=== PATIENT | male | born 1955 | race Caucasian/White ===

== ENCOUNTER 2024-06-25 01:18 | Day surgery (SDC) | payer MEDICARE, SELFPAY ==
[2024-06-05 14:01] VITALS: BMI 25.0
[2024-06-25 10:21] VITALS: BP 132/73; PULSE 82; RESP 20; TEMP 36.2; O2SAT 97
[2024-06-25] MEDS: LACTATED RINGERS 1,000 ML 150 ML IV CONT (10:29)
--- NOTE | 2024-06-25 10:33 | WPDANESEPPF ---
Anes - Initial Pre Proc Eval Procedure: Operation Date: 06/25/24 11:30 Proposed Procedures p Colonoscopy - Santos Kelly MD Date/Time: 06/25/24 10:33 Surgeon: Santos Kelly MD Pre Op Diagnosis: other fecal abnormalities Patient Data Age: 68 Gender: M Height: 1.85 m Weight: 90.3 kg Last Vital Signs Temp 97.2 F L 06/25/24 10:21 Pulse 82 06/25/24 10:21 Resp 20 06/25/24 10:21 BP 132/73 06/25/24 10:21 Pulse Ox 97 06/25/24 10:21 O2 Del Method Room Air 06/25/24 10:21 Allergies Allergy/AdvReac Type Severity Reaction Status Date / Time azithromycin Allergy Unknown Hives Verified 06/25/24 10:19 Sulfa (Sulfonamide Allergy Hives Verified 06/25/24 10:19 Antibiotics) Home Medications Medication Instructions Recorded Confirmed Type multivitamin 1 tablet PO DAILY 11/21/21 06/05/24 History niacin 500 mg capsule,extended 500 mg PO QHS 11/21/21 06/05/24 History release fluorometholone 0.25 % eye 1 drp EACH EYE Q6H 02/26/23 06/05/24 History drops,suspension (FML Forte) gemfibrozil 600 mg tablet 600 mg PO BID #180 tabs 09/10/23 06/05/24 Rx terazosin 10 mg capsule 10 mg PO DAILY #90 caps 01/15/24 06/05/24 Rx indapamide 2.5 mg tablet 2.5 mg PO DAILY #90 tabs 04/03/24 06/05/24 Rx Patient hx anesthesia problems: none Family hx anesthesia problems: none Results Review: All pre-operative results and documents have been reviewed as part of the pre-operative evaluation. [facility] Past Medical History Medical History Bilateral open angle glaucoma Hypertension Hypertriglyceridemia Surgical History Surgical History History of cataract surgery bilateral Family History Family History Father Acute myocardial infarction Heart disease Hypertension Social History Social History (Updated 03/04/24 @ 09:52 by Yana Byrne CMA) Smoking status: Never smoker Second hand tobacco smoke exposure: No Alcohol intake: current Drinks per week: 1 Alcohol use details: BEER Substance use: never Substance use type: does not use Do You Feel Safe in your Home?: Yes Lack of Transportation: No Lack of Food: Never True Current Housing: I Have Housing Concerned About Future Housing: No Difficulty Paying Gas/Electric Bills: No Difficulty Paying for Meds: No Currently Unemployed: No Education: Bachelor's Degree Difficulty w/ Childcare or Family Care: No Living arrangements: with family Occupation/Education: retired Gender identity (if verbalized by the patient): Male Sexual Orientation (if Verbalized by the Patient): Straight or Heterosexual Spiritual care concerns: No Agree to blood products: Yes Anes - Eval Final PreProcedure Day of Procedure 06/25/24 10:33 Patient weight: normal Heart: regular rate and rhythm Lungs: clear to auscultation Airway: Mallampati scale class II Neurological: alert and oriented Last oral intake: >/= 8 hours ASA classification: III Emergent: no Anesthetic plan: proceed Anesthesia type and monitoring: general GIVS and standard monitoring Results Review: All pre-operative results and documents have been reviewed as part of the pre-operative evaluation. Informed Consent: The patient's anesthetic plan and its attendant risks and benefits were discussed with the patient/family/POA. Questions were solicited and answers provided to the satisfaction of the patient/family/POA.
--- NOTE | 2024-06-25 11:07 | PM.HPGS ---
History of Present Illness History of Present Illness Consent: Risks, benefits, and alternatives have been discussed and questions answered. Patient agrees to proceed with procedure. Chief complaint: other fecal abnormalities Narrative: Otilio Martinez is a 68 year old male here for colonoscopy because occult blood in stool, last colonoscopy 10 years ago Review of Systems Review of Systems: All systems reviewed & are unremarkable except as noted in HPI and below PMFSH Past Medical History Medical History (Updated 06/25/24 @ 11:09 by Santos Kelly MD) Bilateral open angle glaucoma Hypertension Hypertriglyceridemia Occult blood in stools Surgical History Surgical History History of cataract surgery bilateral Family History Family History Father Acute myocardial infarction Heart disease Hypertension Social History Social History (Updated 03/04/24 @ 09:52 by Yana Byrne [facility]) Smoking status: Never smoker Second hand tobacco smoke exposure: No Alcohol intake: current Drinks per week: 1 Alcohol use details: BEER Substance use: never Substance use type: does not use Do You Feel Safe in your Home?: Yes Lack of Transportation: No Lack of Food: Never True Current Housing: I Have Housing Concerned About Future Housing: No Difficulty Paying Gas/Electric Bills: No Difficulty Paying for Meds: No Currently Unemployed: No Education: Bachelor's Degree Difficulty w/ Childcare or Family Care: No Living arrangements: with family Occupation/Education: retired Gender identity (if verbalized by the patient): Male Sexual Orientation (if Verbalized by the Patient): Straight or Heterosexual Spiritual care concerns: No Agree to blood products: Yes Meds Home Medications and Allergies Home Medications Medication Instructions Recorded Confirmed Type multivitamin 1 tablet PO DAILY 11/21/21 06/05/24 History niacin 500 mg capsule,extended 500 mg PO QHS 11/21/21 06/05/24 History release fluorometholone 0.25 % eye 1 drp EACH EYE Q6H 02/26/23 06/05/24 History drops,suspension (FML Forte) gemfibrozil 600 mg tablet 600 mg PO BID #180 tabs 09/10/23 06/05/24 Rx terazosin 10 mg capsule 10 mg PO DAILY #90 caps 01/15/24 06/05/24 Rx indapamide 2.5 mg tablet 2.5 mg PO DAILY #90 tabs 04/03/24 06/05/24 Rx Allergies Allergy/AdvReac Type Severity Reaction Status Date / Time azithromycin Allergy Unknown Hives Verified 06/25/24 10:19 Sulfa (Sulfonamide Allergy Hives Verified 06/25/24 10:19 Antibiotics) Vital Signs Vital Signs - 24 hr 06/25/24 10:21 Temperature 97.2 F L Pulse Rate 82 Respiratory Rate 20 Blood Pressure 132/73 Pulse Oximetry 97 Oxygen Delivery Room Air Exam Const: General: comfortable and no acute distress HENMT: Face/Nose/Sinus: Normal nares present Eyes: General: appearance normal, both eyes and all related structures Neck: Neck: no JVD Resp: Auscultation: clear to auscultation bilaterally Cardio: Rate: regular rate Rhythm: regular rhythm GI: Inspection: non-distended GI Palp: Yes Soft to palpation Skin: General skin exam: normal color Neuro: General: gait normal Speech: normal speech Extrem: General: normal to inspection Psych: Mental Status: mental status grossly normal Assessment and Plan Assessment and plan (1) Occult blood in stools: Code(s): R19.5 - Other fecal abnormalities Status: Acute Assessment and Plan: colonoscopy
[2024-06-25 11:26] VITALS: BP 117/66; PULSE 56; RESP 17; O2SAT 96
[2024-06-25 11:36] VITALS: BP 118/69; PULSE 53; RESP 18; O2SAT 98
[2024-06-25 11:46] VITALS: BP 123/68; PULSE 52; RESP 16; O2SAT 96
== END 2024-06-25 12:05 | disposition home or self-care (01) ==
PROVIDERS: PCP Family Medicine Adolescent Medicine; Referring Provider Nurse Practitioner Family; Visit Provider Internal Medicine Gastroenterology
PROC: 0DJD8ZZ Inspection of Lower Intestinal Tract, Via Natural or Artificial Opening Endoscopic (ICD-10-PCS; CPT 45378; principal; 2024-06-25 11:30)
DX: K64.8 Other hemorrhoids (principal); I10 Essential (primary) hypertension; H40.10X0 Unspecified open-angle glaucoma, stage unspecified; E78.1 Pure hyperglyceridemia
CPT/HCPCS: 45378; J2704; J7120